=== PATIENT | female | born 1990 | race Caucasian/White ===

== ENCOUNTER 2018-01-03 06:21 | Day surgery (SDC) | payer BC ==
[~2018-01-03 06:21] MED LIST: Buffered Lidocaine 0.9% SYRIN* 5 ML/SYR SYRINGE INTRADERM ONE; Dexamethasone IV* 4 MG/ML 1 ML (4 MG) IV SLOW PU ONE; Famotidine IV* 10 MG/ML 2 ML (20 mg) IV ONE
[2018-01-03] MEDS ORDERED: Scopolamine 1.5 mg* PATCH ONE (06:55)
[2018-01-03] MEDS ORDERED: Dexamethasone IV* 4 MG/ML 1 ML (4 MG) ONE (06:55)
[2018-01-03] MEDS ORDERED: ceFAZolin 2 GM in 100 MLS NS (*) BAG IVPB ONE (06:55)
[2018-01-03] MEDS ORDERED: Famotidine IV* 10 MG/ML 2 ML (20 mg) ONE (06:55)
[2018-01-03] MEDS ORDERED: Ondansetron INJ* 2 MG/ML VIAL ONE ×2 (06:55→07:36)
[2018-01-03] MEDS ORDERED: Bupivacaine 0.5% SDV PF* 10-30ML VIAL ONE (07:04)
[2018-01-03] MEDS ORDERED: Bupivacaine 0.25% SDV* 30 ML ONE (07:04)
[2018-01-03] MEDS ORDERED: Lidocaine 1% MPF wEPI 200,000* 30 ML SDV ONE (07:04)
[2018-01-03] MEDS ORDERED: fentaNYL* 50 MCG/ML 5 ML VIAL (250 MCG VIAL) ONE (07:35)
[2018-01-03] MEDS ORDERED: Propofol* 10 MG/ML 20 ML BTL IV PUSH ONE (07:36)
[2018-01-03] MEDS ORDERED: EPHEDrine (Pressors)* 50 MG/ML VIAL ONE (07:36)
[2018-01-03] MEDS ORDERED: Lidocaine 2% PF * 5 ML VIAL ONE (07:36)
[2018-01-03] MEDS ORDERED: Atracurium* 10 MG/ML 10 ML VIAL ONE (07:36)
[2018-01-03] MEDS ORDERED: Midazolam* 1 MG/ML 10 ML VIAL (10 MG) ONE (07:36)
[2018-01-03] MEDS ORDERED: fentaNYL* 50 MCG/ML 2 ML VIAL (100 MCG VIAL) ONE ×3 (08:05→11:05)
[2018-01-03] MEDS ORDERED: HYDROmorphone INJ* 1 MG/ML CARPUJECT SYRINGE IV PRN (10:05)
[2018-01-03] MEDS ORDERED: Naloxone* 0.4 MG/ML 1 ML VIAL IV PRN (10:05)
[2018-01-03] MEDS ORDERED: oxyCODONE/Acetamin 5/325 MG* TAB PO PRN (10:05)
[2018-01-03] MEDS ORDERED: DiMENhydriNATE IV* 50 MG/ML VIAL IV PUSH PRN (10:05)
[2018-01-03] MEDS: fentaNYL* 50 MCG/ML 2 ML VIAL (100 MCG VIAL) IV PRN ×2 (11:11→11:18)
[2018-01-03 11:51] VITALS: BP 115/67
[2018-01-03] MEDS ORDERED: oxyCODONE/Acetamin 5/325 MG* TAB ONE (11:52)
== END 2018-01-03 12:25 | disposition home or self-care (01) ==
LOC: OR 06:21
PROVIDERS: ATTEND Plastic Surgery
DX: N65.1 Disproportion of reconstructed breast (principal); Z42.1 Encounter for breast reconstruction following mastectomy
CPT/HCPCS: 81025; 88305; A9270-GY; J1100; J2001; J2250; J2405; J2704; J3010

== ENCOUNTER 2019-01-05 09:35 | Emergency (ER) | payer BC ==
[2019-01-05 11:04] VITALS: BP 133/74
--- NOTE | 2019-01-05 11:48 | UC ---
Minor Trauma HPI - History of Current Complaint Chief Complaint: UCUpperExtremity Stated Complaint: S/P FALL LEFT SHOULDER PAIN Time Seen by Provider: 01/05/19 10:53 Hx Obtained From: Patient Hx Last Menstrual Period: 12/16/18 Onset/Duration: Sudden Onset, Lasting Days Onset Of Pain: Immediate Severity Initially: Moderate Severity Currently: Moderate Pain Intensity: 5 Pain Scale Used: 0-10 Numeric Mechanism Of Injury: Fall From A Standing Position Aggravating Factor(s): Deep Breaths, Movement Alleviating Factor(s): Nothing Associated Signs And Symptoms: Negative: Loss Of Consciousness, Ecchymosis, Swelling - Risk Factors Penetrating Injury Risk Factors: Negative - Allergies/Home Medications Allergies/Adverse Reactions: Allergies Allergy/AdvReac Type Severity Reaction Status Date / Time latex Allergy Mild Itching Verified 01/05/19 10:58 immunizations Allergy Severe Swelling Uncoded 01/05/19 10:58 narayan scented soap Allergy Severe rash/hives Uncoded 01/05/19 10:58 PMH/Surg Hx/FS Hx/Imm Hx Previously Healthy: Yes - Surgical History Surgical History: Yes Surgery Procedure, Year, and Place: right adenoma bioopsy 2017- [facility]. right nipple removal 2017- [facility]. breast reduction and reconstruction - Family History Known Family History: Positive: Hypertension - Social History Alcohol Use: Occasionally Substance Use Type: None Smoking Status (MU): Former Smoker When Did the Patient Quit Smoking/Using Tobacco: 2016 Review of Systems All Other Systems Reviewed And Are Negative: Yes Constitutional: Positive: Negative Skin: Positive: Negative Eyes: Positive: Negative ENT: Positive: Negative Respiratory: Positive: Negative Cardiovascular: Positive: Negative Gastrointestinal: Positive: Negative Genitourinary: Positive: Negative Motor: Positive: Negative Neurovascular: Positive: Negative Musculoskeletal: Positive: Negative, Other: - see image Neurological: Positive: Negative Psychological: Positive: Negative Physical Exam Vital Signs: Initial Vital Signs Temp 98.3 F 01/05/19 10:59 Pulse 75 01/05/19 10:59 Resp 18 01/05/19 10:59 BP 133/74 01/05/19 10:59 Pulse Ox 100 01/05/19 10:59 Images Front/Back of Body, Lg ([place]): 1 - tender here 2 - tender here Diagnostics - Radiology No standard instances Radiology Interpretation Completed By: Radiologist Summary of Radiographic Findings: scapula- no fx Minor Trauma Course/Dx - Differential Dx/Diagnosis Provider Diagnosis: Left-sided thoracic back pain, Fall (on) (from) other stairs and steps, initial encounter Discharge - Sign-Out/Discharge Documenting (check all that apply): Patient Departure All imaging exams completed and their final reports reviewed: Yes - Discharge Plan Condition: Stable Disposition: HOME Prescriptions: Cyclobenzaprine (NF) [Cyclobenzaprine 5 MG (NF)] 5 mg PO TID PRN #21 tab PRN Reason: Spasms Ibuprofen TAB* [Motrin TAB*] 600 mg PO QID PRN #40 tab PRN Reason: Pain Patient Education Materials: Muscle Strain (ED) Referrals: No Primary Care Phys,NOPCP [Primary Care Provider] - Additional Instructions: PT consult recheck in 1=2 weeks if not better - Billing Disposition and Condition Condition: STABLE Disposition: Home
== END 2019-01-05 11:59 | disposition home or self-care (01) ==
LOC: UCCORT 09:35
DX: M54.6 Pain in thoracic spine (principal); M25.512 Pain in left shoulder; Z88.7 Allergy status to serum and vaccine; Z91.09 Other allergy status, other than to drugs and biological substances; Z91.040 Latex allergy status; Z87.891 Personal history of nicotine dependence; W10.8XXA Fall (on) (from) other stairs and steps, initial encounter; Y92.9 Unspecified place or not applicable
CPT/HCPCS: 99212; G0463

== ENCOUNTER 2019-03-05 15:29 | Observation (INO) | payer BC ==
[2019-03-05] MEDS ORDERED: NS 0.9% 1000 ML** 1,000 ML IV ONE (15:58)
[2019-03-05] MEDS ORDERED: Morphine 4 MG/ML VIAL (1 ml) 4 MG/ML VIAL IV ONE (15:58)
[2019-03-05] MEDS ORDERED: Ondansetron INJ* 2 MG/ML VIAL IV ONE (15:59)
--- NOTE | 2019-03-05 16:10 | ED ---
Abdominal Pain/Female - HPI Summary HPI Summary: Patient is a 29 y/o F presenting to ED with complaints of abdominal pain for the past two days. Patient reports that she had mid abdominal pain at first, but the pain subsequently migrated to her RLQ. She notes intermittent nausea but denies vomiting. When asked if she is experiencing diarrhea or constipation , she replies, "A little of both". Fever is denied. Hx of breast reduction and reconstruction. She takes control. She denies smoking cigarettes and substance usage. Rare alcohol usage is endorsed. FMHx of HTN is endorsed. On triage, pain is rated 4/10. Nothing is noted to aggravate/alleviate Sx. Home medications and allergies are reviewed. - History of Current Complaint Chief Complaint: EDAbdPain Stated Complaint: ABD PAIN PER PT Time Seen by Provider: 03/05/19 15:34 Hx Obtained From: Patient Hx Last Menstrual Period: 12/16/18 Onset/Duration: Lasting Days - past two days, Still Present Timing: Days - past two days Severity Currently: Moderate - 4/10 Pain Intensity: 4 Pain Scale Used: 0-10 Numeric Location: Discrete At: RLQ Aggravating Factor(s): Nothing Alleviating Factor(s): Nothing Associated Signs and Symptoms: Positive: Constipation, Nausea, Diarrhea. Negative: Fever, Vomiting Allergies/Adverse Reactions: Allergies Allergy/AdvReac Type Severity Reaction Status Date / Time latex Allergy Mild Itching Verified 03/05/19 15:30 immunizations Allergy Severe Swelling Uncoded 03/05/19 15:30 narayan scented soap Allergy Severe rash/hives Uncoded 03/05/19 15:30 Home Medications: Home Medications Norgestimate-Ethinyl Estradiol [Norgestimate/Ethinyl Estr] 1 tab PO DAILY [History Confirmed 03/05/19] SUMAtriptan TAB* [Imitrex TAB*] 100 mg PO ONCE PRN 03/05/19 [History Confirmed 03/05/19] PMH/Surg Hx/FS Hx/Imm Hx Sensory History: Reports: Hx Contacts or Glasses Denies: Hx Hearing Aid Opthamlomology History: Reports: Hx Contacts or Glasses Neurological History: Reports: Hx Migraine - Cancer History Hx Chemotherapy: No - Surgical History Surgery Procedure, Year, and Place: right adenoma bioopsy 2017- [facility]. right nipple removal 2017- [facility]. breast reduction and reconstruction Hx Anesthesia Reactions: No Infectious Disease History: No Infectious Disease History: Denies: Traveled Outside the [place] in Last 30 Days - Family History Known Family History: Positive: Hypertension - Social History Alcohol Use: Occasionally Substance Use Type: Reports: None Smoking Status (MU): Former Smoker Review of Systems Negative: Fever Gastrointestinal: Other - POSITIVE - CONSTIPATION Positive: Abdominal Pain, Diarrhea, Nausea. Negative: Vomiting All Other Systems Reviewed And Are Negative: Yes Physical Exam - Summary Physical Exam Summary: VITAL SIGNS: Reviewed. GENERAL: Patient is a well-developed and nourished female who is lying comfortable in the stretcher. Patient is not in any acute respiratory distress. HEAD AND FACE: No signs of trauma. No ecchymosis, hematomas or skull depressions. No sinus tenderness. EYES: PERRLA, EOMI x 2, No injected conjunctiva, no nystagmus. EARS: Hearing grossly intact. Ear canals and tympanic membranes are within normal limits. MOUTH: Oropharynx within normal limits. NECK: Supple, trachea is midline, no adenopathy, no JVD, no carotid bruit, no c- spine tenderness, neck with full ROM. CHEST: Symmetric, no tenderness at palpation LUNGS: Clear to auscultation bilaterally. No wheezing or crackles. CVS: Regular rate and rhythm, S1 and S2 present, no murmurs or gallops appreciated. ABDOMEN: Soft, RLQ tenderness. No signs of distention. No rebound no guarding, and no masses palpated. Bowel sounds are normal. EXTREMITIES: FROM in all major joints, no edema, no cyanosis or clubbing. NEURO: Alert and oriented x 3. No acute neurological deficits. Speech is normal and follows commands. SKIN: Dry and warm Triage Information Reviewed: Yes Vital Signs On Initial Exam: Initial Vitals Temp Pulse Resp BP Pulse Ox 97.8 F 79 20 141/83 100 03/05/19 15:30 03/05/19 15:30 03/05/19 15:30 03/05/19 15:30 03/05/19 15:30 Vital Signs Reviewed: Yes Diagnostics - Vital Signs Vital Signs Temp Pulse Resp BP Pulse Ox 03/05/19 15:30 97.8 F 79 20 141/83 100 - Laboratory Result Diagrams: 03/05/19 16:29 03/05/19 16:29 Lab Statement: Any lab studies that have been ordered have been reviewed, and results considered in the medical decision making process. - CT abd/pel ct CT Interpretation Completed By: Radiologist Summary of CT Findings: ABD/PEL CT IMPRESSION: Enlarged appendix with minimal surrounding inflammatory changes suggestive of. early appendicitis. Mild associated small bowel ileus. This report was reviewed by Dr. Rahman. Abdominal Pain Fem Course/Dx - Course Course Of Treatment: This patient is a 29-year-old female who presents to the emergency department with a chief complaint of right lower quadrant pain. Blood work without any significant abnormality except for creatinine of 0.9, glucose 114, AST 10, CRP of 84.5. Beta hCG is negative. In the ED course the patient was given IV fluids, Zofran for nausea and morphine for pain. Abdomen and pelvic CT IMPRESSION: Enlarged appendix with minimal surrounding inflammatory changes suggestive of. early appendicitis. Mild associated small bowel ileus. I discussed case with Dr. Troncoso from surgery and he will admit the patient to his services for further workup and management. Patient is hemodynamically stable alert oriented 3. - Diagnoses Provider Diagnoses: Acute appendicitis - Provider Notifications Discussed Care Of Patient With: Jatin Troncoso Time Discussed With Above Provider: 19:14 Instructed by Provider To: Other - Patient's case was discussed with Dr. Troncoso, Dr. Troncoso will come to ED to evaluate. 193 - Dr. Troncoso had evaluated the patient, he will take patient to OR. Discharge - Sign-Out/Discharge Documenting (check all that apply): Patient Departure - admit Patient Received Moderate/Deep Sedation with Procedure: No - Discharge Plan Condition: Good Disposition: ADMITTED TO [facility] Referrals: No Primary Care Phys,NOPCP [Primary Care Provider] - - Billing Disposition and Condition Condition: GOOD Disposition: Admitted to [facility] - Attestation Statements Document Initiated by Scribe: Yes Documenting Scribe: ROBERTO RIVERA Provider For Whom Valeria is Documenting (Include Credential): JERAD RAHMAN MD Scribe Attestation: ROBERTO Soto, scribed for JERAD RAHMAN MD on 03/05/19 at 1945. Scribe Documentation Reviewed: Yes Provider Attestation: The documentation as recorded by the ROBERTO goodson accurately reflects the service I personally performed and the decisions made by , JERAD RAHMAN MD Status of Scribe Document: Viewed
[2019-03-05 16:38] LABS: ABS Basophils 0 10^3/ul (0-0.2); ABS Eosinophils 0 10^3/ul (0-0.6); ABS Lymphocytes 1.1 10^3/ul (1.0-4.8); ABS Monocytes 0.3 10^3/ul (0-0.8); ABS Neutrophils 7.6 10^3/ul (1.5-7.7); ABS Nucleated RBC 0 10^3/ul; Eosinophil % 0.4 %; Hematocrit 42 % (33-41); Hemoglobin 14.1 g/dL (12.0-16.0); Lymphocyte % 12.3 %; Mean Corpuscular HGB Conc 34 g/dL (31-36); Mean Corpuscular Hemoglobin 30 pg (27-31); Mean Corpuscular Volume 88 fL (80-97); Mean Platelet Volume 8.3 fL (7.4-10.4); Nucleated Red Blood Cells % 0; Platelet Count 192 10^3/uL (150-450); Red Blood Count 4.78 10^6 /uL (3.70-4.87); Red Cell Distribution Width 13 % (10.5-15); White Blood Count 9.1 10^3/uL (3.5-10.8)
[2019-03-05 16:59] LABS: ALT 14 U/L (7-52); AST 10 U/L (13-39); Albumin/Globulin Ratio 1.3 (1-3); Alkaline Phosphatase 67 U/L (34-104); Anion Gap 8 mmol/L (2-11); BUN/Creatinine Ratio 12.2 (8-20); Blood Urea Nitrogen 12 mg/dL (6-24); C Reactive Protein 84.58 mg/L (<8.01); CO2 Carbon Dioxide 25 mmol/L (22-32); Calcium 8.8 mg/dL (8.6-10.3); Chloride 105 mmol/L (101-111); EGFR African American 81.8 (>60); EGFR Non-African American 67.6 (>60); Globulin 3.1 g/dL (2-4); Glucose 114 mg/dL (70-100); Potassium 4.1 mmol/L (3.5-5.0); Sodium 138 mmol/L (135-145); Total Protein 7.1 g/dL (6.4-8.9)
[2019-03-05 17:01] LABS: HCG Pregnancy < 0.60 mIU/mL
[2019-03-05] MEDS ORDERED: Iohexol 300* (CONTRAST) 10 ML SDV IV ONE (17:19)
[2019-03-05] MEDS ORDERED: ZOSYN 3.375 GM x ONE DOSE over 30 miuntes IVPB ×2 (20:00)
[2019-03-05] MEDS ORDERED: Succinylcholine* 20 MG/ML 10 ML VIAL ONE (20:12)
[2019-03-05] MEDS ORDERED: Lidocaine 2% PF * 5 ML VIAL ONE (20:12)
[2019-03-05] MEDS ORDERED: Propofol* 10 MG/ML 20 ML BTL ONE (20:12)
[2019-03-05] MEDS ORDERED: Bupivacaine 0.25% EPI 200,000* 30 ML SDV ONE (20:14)
[2019-03-05] MEDS ORDERED: fentaNYL* 50 MCG/ML 2 ML VIAL (100 MCG VIAL) ONE (20:16)
[2019-03-05] MEDS ORDERED: Midazolam* 1 MG/ML 2 ML VIAL (2 MG) ONE (20:16)
[2019-03-05] MEDS ORDERED: Rocuronium* 10 MG/ML VIAL ONE (20:32)
[2019-03-05] MEDS ORDERED: DiMENhydriNATE IV* 50 MG/ML VIAL IV PUSH PRN (20:42)
[2019-03-05] MEDS ORDERED: Naloxone* 0.4 MG/ML 1 ML VIAL IV PRN (20:42)
[2019-03-05] MEDS ORDERED: fentaNYL* 50 MCG/ML 2 ML VIAL (100 MCG VIAL) IV PRN (20:42)
[2019-03-05] MEDS ORDERED: oxyCODONE TAB* 5 MG TAB PO PRN (20:42)
[2019-03-05] MEDS ORDERED: Acetaminophen TAB* 325 MG PO PRN ×2 (20:42→21:34)
--- NOTE | 2019-03-05 20:46 | HP ---
ADMISSION HISTORY AND PHYSICAL: DATE OF ADMISSION: 03/05/19 CHIEF COMPLAINT: Right lower quadrant abdominal pain. HISTORY OF PRESENT ILLNESS: Ms. Cami Devries is a healthy, obese, 29-year - old woman, who on Tuesday evening was driving home from [place] and later in the evening developed some generalized abdominal pain, mainly periumbilical. This was described as pressure. This was associated with some anorexia and nausea, but no vomiting. She felt like she needed to have a bowel movement, but had no diarrhea. Pain worsened over the course of the night and on Tuesday, it became localized in the right lower quadrant. This worsened and although she was able to force some liquids and food down last night, continued to feel worse. She did go to work today, but the pain persisted and she presented to the emergency room. She states she has had no fevers. She has had no diarrhea. There have been no urinary complaints other than the fact when she strains it does hurt. Her right lower quadrant hurts when she moves, coughs, or bends over and it is painful at rest. The pain has not been crampy or colicky. She has had no flank pain. There has been no blood per rectum or blood in her urine. In the emergency room, laboratory workup included a normal white blood cell count. There was no shift. Electrolytes, BUN and creatinine were within normal limits. She had a C-reactive protein of 84. Her beta hCG was negative. Liver transaminases and bilirubin were normal. She underwent a CT scan of the abdomen and pelvis. I did review these images. This does show a distended thick-walled appendix without contrast within the lumen. There was some mild periappendiceal inflammation. This has been read by the radiologist as early acute appendicitis. PAST MEDICAL HISTORY: Migraine headaches. PAST SURGICAL HISTORY: Breast reduction surgery. MEDICATIONS: Include: 1. Ibuprofen p.r.n. 2. Imitrex 100 mg p.r.n. 3. control pill 1 tablet daily. ALLERGIES: To LATEX, VACCINES, and CERTAIN SOAPS. She has no known drug allergies. SOCIAL HISTORY: She works as an education officer doing desk work. She does not use tobacco. She drinks alcohol on a very rare social basis. REVIEW OF SYSTEMS: Cerebrovascular: No dizziness or visual disturbances. Cardiovascular: No chest pain, shortness of breath. Pulmonary: No wheezing or hemoptysis. GI: As per above. : No urgency, hematuria, or vaginal bleeding. She is not . PHYSICAL EXAMINATION GENERAL: Well-developed, well-nourished, overweight female with normal attention to grooming. She is quite alert and conversive and very pleasant. VITAL SIGNS: Temperature 97.8, pulse 82, blood pressure 122/69. HEENT: Her sclerae are anicteric. Her oral mucosa is slightly dry. LUNGS: Clear to auscultation with normal respiratory effort. HEART: Regular rate and rhythm without murmurs, rubs, or gallops. ABDOMEN: Soft and nondistended. No prior surgical incisions or hernias noted. She had some bowel sounds that were slightly hyperactive throughout. She has tenderness in the right lower quadrant with guarding and some rigidity. There is no generalized peritoneal irritation. She has some mild suprapubic pain. PSYCHIATRIC: She is awake, alert, and oriented x3. She has normal judgment and insight. IMPRESSION: Acute appendicitis. CT scan shows dilated appendix with apparently thickened fatima and periappendiceal inflammation. There is no evidence of perforation or abscess. There are no other acute findings. PLAN: I discussed these findings with the patient and her mother in the emergency room today. With her clinical history, she is consistent with acute appendicitis despite having a normal appendix and in conjunction with the CAT scan, I recommended we proceed with a laparoscopic appendectomy this evening. The procedure was discussed with the patient and the risks of, but not limited to bleeding, infection, intraabdominal abscess formation, injury to peritoneal and retroperitoneal structures, possibility of an open procedure, abscess formation, blood clots, and the risks of anesthesia were all explained. We also briefly discussed treatment with IV and oral antibiotics, but I recommended we proceed with surgery for definitive care and she agrees and gives her consent to proceed. She will be kept n.p.o. IV fluids have been started. She will receive preoperative IV antibiotics. Due to lateness of the hour when we will most likely be done, I suspect that she will spend a night here in the hospital with hopeful discharge tomorrow morning. [id number]/[facility] #: [id number] BARBARA
[2019-03-05] MEDS ORDERED: Metoclopramide IV* 5 MG/ML 2 ML VIAL ONE (21:10)
[2019-03-05] MEDS ORDERED: Ondansetron INJ* 2 MG/ML VIAL ONE (21:10)
[2019-03-05] MEDS ORDERED: Dexamethasone IV* 4 MG/ML 1 ML (4 MG) ONE (21:10)
[2019-03-05] MEDS ORDERED: Sugammadex * 200 MG/2 ML VIAL IV PUSH ONE (21:14)
--- NOTE | 2019-03-05 21:32 | BRIEFOPN ---
Brief Operative Note - Surgery Procedures: OPERATIVE REPORT Pre-op: Acute appendicitis Post-Op: Same Procedure:Laparoscopic appendectomy Surgeon: MD Aba Asst: none Anes: general with local , Dr. Wheatley IVF:1 liter of crystalloid EBL:min Specimen: Appendix Drain: none Wound: 3 To PACU
[2019-03-05] MEDS ORDERED: Morphine INJ* 2 MG/ML 1 ML SYRINGE (TWO MG - NEW SYRINGE VERSION) IV PRN (21:34)
[2019-03-05] MEDS ORDERED: Ketorolac INJ* 30 MG/ML 1 ML VIAL IV PUSH PRN (21:34)
[2019-03-05] MEDS ORDERED: oxyCODONE/Acetamin 5/325 MG* TAB PO PRN (21:34)
[2019-03-05] MEDS ORDERED: Ondansetron INJ* 2 MG/ML VIAL IV PRN (21:34)
[2019-03-05] MEDS ORDERED: NS 0.9% 1000 ML** 1,000 ML IV SCH (21:45)
[2019-03-05] MEDS ORDERED: Ketorolac INJ* 30 MG/ML 1 ML VIAL ONE (21:53)
[2019-03-05] MEDS ORDERED: Acetaminophen TAB* 325 MG ONE (22:28)
[2019-03-05] MEDS ORDERED: oxyCODONE TAB* 5 MG TAB ONE (22:28)
--- NOTE | 2019-03-05 23:37 | OP ---
DATE OF OPERATION: 03/05/19 - ROOM #335 DATE OF : 89 SURGEON: Dr. Troncoso. GERIATRIC PHYSICAL THERAPIST: None. ANESTHESIOLOGIST: Dr. Wheatley. ANESTHESIA: General with local. PRE-OP DIAGNOSIS: Acute appendicitis. POST-OP DIAGNOSIS: Acute suppurative appendicitis. OPERATIVE PROCEDURE: Laparoscopic appendectomy. ESTIMATED BLOOD LOSS: Minimal. WOUND CLASSIFICATION: III. DRAINS: None. SPECIMEN: Appendix. COMPLICATIONS: None. IV FLUIDS: 1 L of crystalloid. DESCRIPTION OF PROCEDURE: Written informed consent was obtained, the abdomen was marked with indelible ink and preoperative antibiotics were administered. The patient was taken to the operating room and placed in a supine position. Sequential compression devices and a warming blanket were applied. General anesthesia was administered, and the abdomen was prepped and draped in usual sterile fashion. Time-out verification was completed. Initially, a small transverse incision was made just above the umbilicus and the peritoneal cavity was entered under direct vision and a 12-mm blunt port was inserted and the abdomen was insufflated to 15 mmHg. Under direct vision, a 5-mm port was placed in the left lower abdominal wall and a second 5-mm port was placed in the suprapubic position. There was no evidence of fluid or pus in the abdomen. The terminal ileum and cecum were unremarkable. The right ovary was normal. The sigmoid colon was visualized and was normal. The appendix was identified. It was intraperitoneal. The distal half of the appendix was edematous as well its mesentery with some fibrinous exudate, but no evidence of gangrene, perforation, or abscess. The mesoappendix was divided sequentially using LigaSure from its tip to the base. The proximal half of the appendix was normal as was the cecum. An Endo-KATARINA doll load of 45 mm stapler was then used to divide the appendix at its base and it was placed in an EndoCatch bag and brought out through the umbilical incision. The staple line was intact and there was no bleeding. The right lower quadrant was irrigated and hemostasis was assured. All ports were removed under direct vision of the camera. The umbilical fascia was closed with interrupted 0 Vicryl suture. The skin at all three incisions was approximated with subcuticular 4-0 Vicryl suture. Steri-Strips were applied. The patient tolerated the procedure well, was taken to the recovery room in stable condition. [id number]/[facility] #: [id number] MTDKassandra
--- NOTE | 2019-03-06 08:16 | PN ---
Progress Note - Progress Note Date of Service: 03/06/19 SOAP: Subjective: Doing well Tolerating po Pain is controlled Objective: Temp Pulse Resp BP Pulse Ox 98.6 F 70 16 101/54 98 03/06/19 04:51 03/06/19 04:51 03/06/19 04:51 03/06/19 04:51 03/06/19 04:51 Intake & Output 03/04/19 03/05/19 03/06/19 03/07/19 06:59 06:59 06:59 06:59 Intake Total 2100 Output Total 500 Balance 1600 Weight 270 lb Intake: IV Fluids 1950 LR 950 Oral 150 Output: Urine 500 PEX: Comfortable Lungs are clear Abd is soft and non-distended. Bowel sounds are present. Incisions are CDI Assessment: POD#1 s/ lap appy for acute appendicitis Plan: D/C home today Outpatient follow up Instructions given
[2019-03-06 10:09] VITALS: BP 119/55
== END 2019-03-06 10:25 | disposition home or self-care (01) ==
LOC: ED 15:29 → OR 19:56 → SSU 22:49
PROVIDERS: ADMIT Surgery; ATTEND Surgery
DX: K35.80 Unspecified acute appendicitis (principal); R10.31 Right lower quadrant pain; K59.00 Constipation, unspecified; R19.7 Diarrhea, unspecified; Z87.891 Personal history of nicotine dependence
CPT/HCPCS: 36415; 74177; 80053; 83605; 83690; 83880; 84702; 85025; 85730; 86140; 88304; 96361; 96374; 96375; 99284; A9270-GY; C1776; J0330; J1100; J1885; J2250; J2270; J2405; J2543; J2704; J2765; J3010; Q9967